=== PATIENT | female | born 1985 | race Two or more races ===

== ENCOUNTER 2020-01-04 13:30 | Inpatient (IN) | payer OTHER ==
[~2020-01-04] VITALS: Ht 167.6 cm; Wt 3.6 kg
[2020-01-06] MEDS ORDERED: PRENAT PO (08:25)
[2020-01-06] MEDS ORDERED: ASPIR 8181 MG PO (08:26)
[2020-01-19] MEDS ORDERED: PRENATAL + DHA1 EAC1 PO (10:05)
== END 2020-01-20 11:00 | DRG 788 ==
LOC: OB/GYN 01-11 07:15 → O/R 01-18 06:00 → OB/GYN 01-18 08:30
PROVIDERS: ADMIT Obstetrics & Gynecology
PROC: 4A1HXCZ Monitoring of Products of Conception, Cardiac Rate, External Approach (ICD-10-PCS; 2020-01-18)
PROC: 10D00Z1 Extraction of Products of Conception, Low, Open Approach (ICD-10-PCS; principal; 2020-01-18 07:15)
DX: O36.63X1 Maternal care for excessive fetal growth, third trimester, fetus 1 (principal); O34.13 Maternal care for benign tumor of corpus uteri, third trimester; D25.9 Leiomyoma of uterus, unspecified; Z37.0 Single live birth; Z3A.39 39 weeks gestation of pregnancy